=== PATIENT | male | born 1990 | race African-American/Black ===

== ENCOUNTER 2023-02-04 12:26 | Emergency (ER) | payer BC, OTHER ==
[2023-02-04 12:30] VITALS: BP 111/76; PULSE 50; RESP 18; TEMP 97.9; BMI 25.0
[2023-02-04 14:17] LABS: BASO % 0.5 % (0-2.0); EOS % 2.9 % (0-4.5); HEMATOCRIT 49.9 % (35.4-49); LYMPH % 16.4 % (8-40); MCH 30.2 pg (25.7-33.7); MCHC 34.2 g/dl (32.0-35.9); MEAN CELL VOLUME 88.4 fl (80-96); MONO % 12.4 % (3.8-10.2); NEUT % 67.8 % (42.8-82.8); PLATELET COUNT 312 10^3/uL (134-434); RBC 5.64 M/mm3 (4.00-5.60); RDW 13.2 % (11.9-15.9); WHITE BLOOD COUNT 8.2 K/mm3 (4.0-10.0)
[2023-02-04 14:18] LABS: URINE APPEARANCE CLEAR; URINE BILIRUBIN NEGATIVE (NEGATIVE); URINE COLOR YELLOW; URINE GLUCOSE (UA) NEGATIVE (NEGATIVE); URINE KETONE NEGATIVE (NEGATIVE); URINE LEUK ESTERASE NEGATIVE (NEGATIVE); URINE NITRITE NEGATIVE (NEGATIVE); URINE PROTEIN NEGATIVE (NEGATIVE); URINE UROBILINOGEN 0.2 mg/dL (0.2-1.0)
[2023-02-04 14:23] LABS: INR 1.02 (0.83-1.09); PROTHROMBIN TIME (PATIENT) 11.8 SEC (9.7-13.0)
[2023-02-04 14:26] LABS: ACTIVATED PTT 35.3 SECONDS (25.2-36.5)
[2023-02-04 14:49] LABS: POTASSIUM 4.2 mmol/L (3.5-5.1)
[2023-02-04 14:51] LABS: ALBUMIN 4.5 g/dl (3.4-5.0); BLOOD UREA NITROGEN 9.7 mg/dL (7-18)
[2023-02-04 14:54] LABS: CREATININE 1.2 mg/dL (0.55-1.3)
[2023-02-04 14:56] LABS: TOT PROT 8.5 g/dl (6.4-8.2)
== END 2023-02-04 18:07 | disposition home or self-care (01) ==
LOC: JER 12:26
DX: R19.03 Right lower quadrant abdominal swelling, mass and lump (principal); S30.1XXA Contusion of abdominal wall, initial encounter; K50.00 Crohn's disease of small intestine without complications; X58.XXXA Exposure to other specified factors, initial encounter
CPT/HCPCS: 36415; 74177-TC; 80053; 81003; 85025; 85610; 85730; 99285-25